=== PATIENT | male | born 1960 | race African-American/Black ===

== ENCOUNTER 2018-01-10 05:12 | Inpatient (IN) ==
[2018-01-10] MEDS ORDERED: ceFAZolin 1,000 MG in SYRINGE 1 EACH IV ONE (06:00)
[2018-01-10] MEDS ORDERED: VANCOMYCIN INJ 1,000 MG in SODIUM CHLORIDE 0.9% 250 ML IV ONE ×2 (06:00→18:00)
[2018-01-10] MEDS ORDERED: VANCOMYCIN 1,000 MG VIAL ONE (06:01)
[2018-01-10] MEDS ORDERED: FAMOTIDINE 20 MG TABLET ONE (06:29)
[2018-01-10] MEDS ORDERED: LACTATED RINGERS 1,000 ML IV SCH (06:30)
[2018-01-10] MEDS ORDERED: FAMOTIDINE 20 MG TABLET PO ONE (06:30)
[2018-01-10] MEDS ORDERED: ROPIVACAINE 0.5% 30 ML VIAL ONE (06:45)
[2018-01-10] MEDS ORDERED: TRANEXAMIC ACID 1,000 MG/10 ML VIAL ONE ×2 (07:04→09:31)
[2018-01-10] MEDS ORDERED: ALBUTEROL 1.25 MG/3 ML NEB RESP TX PRN (07:36)
[2018-01-10] MEDS ORDERED: MAGNESIUM HYDROXIDE SUSP 30 ML UDCUP PO PRN (07:39)
[2018-01-10] MEDS ORDERED: ONDANSETRON 4 MG/2 ML VIAL IV PRN (07:39)
[2018-01-10] MEDS ORDERED: GLUCAGON 1 MG VIAL IM PRN (07:39)
[2018-01-10] MEDS ORDERED: ZALEPLON 5 MG CAPSULE PO PRN (07:39)
[2018-01-10] MEDS ORDERED: oxyCODONE IR 5 MG TABLET PO PRN (07:39)
[2018-01-10] MEDS ORDERED: diphenhydrAMINE CAP 25 MG CAPSULE PO PRN (07:39)
[2018-01-10] MEDS ORDERED: DEXTROSE 50% 25 GM/50 ML VIAL IV PRN (07:39)
[2018-01-10] MEDS ORDERED: MORPHINE 4 MG/1 ML VIAL IV PRN ×2 (07:39)
[2018-01-10] MEDS ORDERED: BACITRACIN OINT 0.9 GM PACK TOP ONE (08:40)
[2018-01-10] MEDS ORDERED: MEPERIDINE 25 MG/1 ML VIAL ONE (09:16)
[2018-01-10] MEDS ORDERED: ONDANSETRON 4 MG/2 ML VIAL ONE ×2 (09:16→09:31)
[2018-01-10] MEDS ORDERED: ALBUTEROL/IPRATROPIUM 3 ML NEB RESP TX ONE ×2 (09:19→09:54)
[2018-01-10 09:27] LABS: Apearance,Urine CLEAR (Clear); Bacteria,Urine Occasional /HPF (Few); Bilirubin,Urine Negative (Negative); Blood, Urine Negative (Negative); Glucose,Urine (UA) Negative (Negative); Ketones,Urine Negative (Negative); Mucus,Urine Occasional /LPF (Occasional); Nitrite,Urine Negative (Negative); Protein,Urine Negative; RBC,Urine 1 /HPF (0-4); Squamous Epithelial Cell,Urine Occasional /HPF (0-10); Urine Color Yellow (Yellow); Urine Specific Gravity 1.013 (1.001-1.035); Urine Urobilinogen < 2.0 EU/DL (0.2-1.0); WBC,Urine 1 /HPF (0-6)
[2018-01-10] MEDS ORDERED: MIDAZOLAM 2 MG/2 ML VIAL ONE (09:30)
[2018-01-10] MEDS ORDERED: fentaNYL 100 MCG/2 ML VIAL ONE (09:30)
[2018-01-10] MEDS ORDERED: PROPOFOL 200 MG/20 ML VIAL IV ONE (09:30)
[2018-01-10] MEDS ORDERED: PHENYLEPHRINE 1 MG/10 ML SYRINGE IV ONE (09:31)
[2018-01-10] MEDS ORDERED: PROPOFOL 500 MG/50 ML BOTTLE IV ONE (09:31)
[2018-01-10] MEDS ORDERED: ONDANSETRON 4 MG/2 ML VIAL IV ONE (09:54)
[2018-01-10] MEDS ORDERED: MEPERIDINE 25 MG/1 ML VIAL IV ONE (09:54)
[2018-01-10] MEDS ORDERED: KETOROLAC 30 MG/1 ML VIAL ONE (10:00)
[2018-01-10] MEDS: LACTATED RINGERS 1,000 ML IV SCH ×3 (10:11→22:41)
[2018-01-10] MEDS: KETOROLAC 30 MG/1 ML VIAL IV SCH ×3 (10:12→20:27)
[2018-01-10] MEDS ORDERED: INFLUENZA VIRUS VACCINE 0.5 ML SYRINGE IM ONE (10:46)
[2018-01-10] MEDS: ALBUTEROL/IPRATROPIUM 3 ML NEB RESP TX SCH ×2 (11:00→20:19)
[2018-01-10] MEDS ORDERED: ALBUTEROL 2.5 MG/3 ML NEB RESP TX PRN (11:00)
[2018-01-10] MEDS: INSULIN LISPRO 100 UNIT/ML SUBCUT SCH ×3 (11:20→20:26)
[2018-01-10] MEDS: ceFAZolin 2,000 MG in PREMIX 1 EACH IV SCH ×2 (11:35→20:27)
[2018-01-10] MEDS: ACETAMINOPHEN 500 MG TABLET PO SCH ×2 (11:35→17:53)
[2018-01-10] MEDS: oxyCODONE IR 5 MG TABLET PO PRN ×2 (12:10→20:37)
[2018-01-10] MEDS: DOCUSATE SODIUM 100 MG CAPSULE PO SCH ×2 (12:10→20:26)
[2018-01-10] MEDS: LOVASTATIN 20 MG TABLET PO SCH (12:10)
[2018-01-10] MEDS ORDERED: SODIUM CHLORIDE 0.9% 500 ML IV ONE (12:46)
[2018-01-10] MEDS: metFORMIN 500 MG TABLET PO SCH (20:26)
[2018-01-10] MEDS: MONTELUKAST 10 MG TABLET PO SCH (20:26)
[2018-01-10] MEDS: FONDAPARINUX 2.5 MG/0.5 ML SYRINGE SUBCUT SCH (20:26)
[2018-01-11] MEDS: ACETAMINOPHEN 500 MG TABLET PO SCH ×2 (00:05→05:32)
[2018-01-11] MEDS: ALBUTEROL/IPRATROPIUM 3 ML NEB RESP TX SCH ×4 (01:34→19:23)
[2018-01-11] MEDS: KETOROLAC 30 MG/1 ML VIAL IV SCH (02:50)
[2018-01-11 05:32] LABS: Basophils % 0.3 % (0.0-0.8); Eosinophils # 0.1 10*3/uL (0.0-0.87); Eosinophils % 0.8 % (0.00-10.9); Hematocrit 33.5 VOL% (42.0-52.0); Hemoglobin 10.6 GM/DL (14.0-18.0); Immature Granulocytes % 0.3 %; Immature Granulocytes Absolute 0.02 #; Lymphocytes % 25.2 % (21.2-54.2); Mean Corpuscular HGB Conc 31.6 GM/DL (32-36); Mean Corpuscular Hemoglobin 29 PG (27-34); Mean Corpuscular Volume 90.8 FL (87-102); Mean Platelet Volume 10.8 FL (9.6-12.0); Monocytes # 0.6 10*3/uL (0.11-0.8); Monocytes % 7.9 % (1.7-12.7); Neutrophils # 5.1 10*3/uL (1.4-7.4); Neutrophils % 65.5 % (38.7-73.9); Platelet Count 184 T/CUMM (130-400); Red Blood Count 3.69 MC/CUMM (3.8-5.5); White Blood Count 7.8 T/CUMM (4-12)
[2018-01-11 06:08] LABS: Osmolality,Calculated 279.5 MOS/KG (273-304); Potassium 3.5 MMOL/L (3.5-5.1)
[2018-01-11] MEDS: INSULIN LISPRO 100 UNIT/ML SUBCUT SCH ×4 (08:38→20:51)
[2018-01-11] MEDS: BENAZEPRIL 40 MG TABLET PO SCH (10:16)
[2018-01-11] MEDS: hydroCHLOROthiazide 25 MG TABLET PO SCH (10:16)
[2018-01-11] MEDS: LORATADINE 10 MG TABLET PO SCH (10:16)
[2018-01-11] MEDS: metFORMIN 500 MG TABLET PO SCH ×2 (10:16→20:51)
[2018-01-11] MEDS: LOVASTATIN 20 MG TABLET PO SCH (10:16)
[2018-01-11] MEDS: amLODIPine 10 MG TABLET PO SCH (10:16)
[2018-01-11] MEDS: DOCUSATE SODIUM 100 MG CAPSULE PO SCH ×2 (10:17→20:51)
[2018-01-11] MEDS: CELECOXIB 200 MG CAPSULE PO SCH (13:18)
[2018-01-11] MEDS ORDERED: TUBERCULIN SKIN TEST 0.1 ML SYRINGE INTRADERM ONE (14:55)
[2018-01-11] MEDS: FONDAPARINUX 2.5 MG/0.5 ML SYRINGE SUBCUT SCH (20:51)
[2018-01-11] MEDS: MONTELUKAST 10 MG TABLET PO SCH (20:51)
[2018-01-12] MEDS: ALBUTEROL/IPRATROPIUM 3 ML NEB RESP TX SCH ×4 (00:34→18:52)
[2018-01-12 06:33] LABS: Basophils % 0.4 % (0.0-0.8); Eosinophils # 0.1 10*3/uL (0.0-0.87); Eosinophils % 0.9 % (0.00-10.9); Hematocrit 32.6 VOL% (42.0-52.0); Hemoglobin 10.1 GM/DL (14.0-18.0); Immature Granulocytes % 0.4 %; Immature Granulocytes Absolute 0.03 #; Lymphocytes # 2.1 10*3/uL (1.4-4.0); Lymphocytes % 27.5 % (21.2-54.2); Mean Corpuscular Hemoglobin 28 PG (27-34); Mean Corpuscular Volume 90.1 FL (87-102); Mean Platelet Volume 10.7 FL (9.6-12.0); Monocytes # 0.7 10*3/uL (0.11-0.8); Monocytes % 8.6 % (1.7-12.7); Neutrophils # 4.7 10*3/uL (1.4-7.4); Neutrophils % 62.2 % (38.7-73.9); Platelet Count 185 T/CUMM (130-400); Red Blood Count 3.62 MC/CUMM (3.8-5.5); Red Cell Distribution Width 12.8 % (9.3-17.3); White Blood Count 7.5 T/CUMM (4-12)
[2018-01-12 07:04] LABS: Calcium 8.4 MG/DL (8.5-10.1); Osmolality,Calculated 280.3 MOS/KG (273-304); Potassium 3.6 MMOL/L (3.5-5.1)
[2018-01-12] MEDS: INSULIN LISPRO 100 UNIT/ML SUBCUT SCH ×4 (07:50→21:06)
[2018-01-12] MEDS: LORATADINE 10 MG TABLET PO SCH (08:54)
[2018-01-12] MEDS: DOCUSATE SODIUM 100 MG CAPSULE PO SCH ×2 (08:54→20:59)
[2018-01-12] MEDS: hydroCHLOROthiazide 25 MG TABLET PO SCH (08:54)
[2018-01-12] MEDS: LOVASTATIN 20 MG TABLET PO SCH (08:54)
[2018-01-12] MEDS: CELECOXIB 200 MG CAPSULE PO SCH (08:54)
[2018-01-12] MEDS: BENAZEPRIL 40 MG TABLET PO SCH (08:54)
[2018-01-12] MEDS: amLODIPine 10 MG TABLET PO SCH (08:54)
[2018-01-12] MEDS: metFORMIN 500 MG TABLET PO SCH ×2 (08:54→20:59)
[2018-01-12] MEDS: MONTELUKAST 10 MG TABLET PO SCH (20:59)
[2018-01-12] MEDS: FONDAPARINUX 2.5 MG/0.5 ML SYRINGE SUBCUT SCH (20:59)
[2018-01-13] MEDS: ALBUTEROL/IPRATROPIUM 3 ML NEB RESP TX SCH ×2 (00:27→07:10)
[2018-01-13 07:50] VITALS: BP 123/84
[2018-01-13] MEDS: INSULIN LISPRO 100 UNIT/ML SUBCUT SCH ×2 (08:07→20:09)
[2018-01-13] MEDS: DOCUSATE SODIUM 100 MG CAPSULE PO SCH (08:49)
[2018-01-13] MEDS: CELECOXIB 200 MG CAPSULE PO SCH (08:49)
[2018-01-13] MEDS: hydroCHLOROthiazide 25 MG TABLET PO SCH (08:49)
[2018-01-13] MEDS: LOVASTATIN 20 MG TABLET PO SCH (08:49)
[2018-01-13] MEDS: amLODIPine 10 MG TABLET PO SCH (08:49)
[2018-01-13] MEDS: metFORMIN 500 MG TABLET PO SCH (08:49)
[2018-01-13] MEDS: BENAZEPRIL 40 MG TABLET PO SCH (08:49)
[2018-01-13] MEDS: LORATADINE 10 MG TABLET PO SCH (08:49)
== END 2018-01-13 11:30 | DRG 470 ==
LOC: N.OR 05:12 → N.SDSINP 05:13 → N.OR 05:50 → N.3E 07:39 → N.OR 09:07
PROVIDERS: ADMIT Orthopaedic Surgery; ATTEND Orthopaedic Surgery